=== PATIENT | female | born 1950 | race Hispanic/Latino ===

== ENCOUNTER 2024-05-05 19:59 | Emergency (ER) | payer BC, MEDICARE, OTHER ==
[2024-05-05] MEDS ORDERED: Ketorolac Tromethamine 30 MG (1 mL) VIAL ONE (21:12)
[2024-05-05] MEDS ORDERED: Morphine 2 MG/ML VIAL ONE (21:13)
== END 2024-05-05 22:00 | disposition home or self-care (01) ==
LOC: ERS 19:59
DX: S80.01XA Contusion of right knee, initial encounter (principal); I10 Essential (primary) hypertension; F17.210 Nicotine dependence, cigarettes, uncomplicated; W18.09XA Striking against other object with subsequent fall, initial encounter
CPT/HCPCS: 73552; 73590; J1885; J2272; 96374; 96375